=== PATIENT | male | born 1990 | race American Indian/Alaskan Native ===

== ENCOUNTER 2016-04-29 11:50 | Emergency (ER) | payer SELFPAY ==
[2016-04-29] MEDS ORDERED: XOPENEX IH ONE (12:29)
[2016-04-29] MEDS ORDERED: TYLENOL PO ONE (12:29)
--- NOTE | 2016-04-29 12:32 | Emergency Department Report ---
Chief Complaint: Dyspnea/Respdistress Stated Complaint: SOB/WHEEZING/FEVER Time Seen by Provider: 04/29/16 12:27 - HPI History of Present Illness: Patient reports wheezing, headache and fever that started yesterday - ROS Review of Systems: all other systems are unremarkable except for documentation in HPI - Exam Vital Signs: Vital Signs 04/29/16 12:07 Temperature 103 F H Pulse Rate 126 H Respiratory 22 Rate Blood Pressure 126/82 O2 Sat by Pulse 94 Oximetry Physical Exam: Gen: well developed and nourished, NAD Resp: expiratory wheezing, even and unlabored, no rales or rhonchi MSE screening note: Focused history and physical exam performed. Due to findings the following was ordered: analgesic, resp tx and radiology studies ordered ED Disposition for MSE Condition: Stable
--- NOTE | 2016-04-29 13:27 | XRay Report ---
Chest 2 views: History: Dyspnea. Findings: Normal cardiomediastinal silhouette. Trachea is midline. No consolidation, pneumothorax or pleural fusion. Impression No acute cardiopulmonary findings.
[2016-04-29] MEDS ORDERED: TESSALON PERLES PO ONE (22:45)
[2016-04-29] MEDS ORDERED: MUCINEX ER PO ONE (22:45)
[2016-04-29 23:29] VITALS: BP 121/85
--- NOTE | 2016-04-29 23:40 | Emergency Department Report ---
HPI - General Chief Complaint: Dyspnea/Respdistress Time Seen by Provider: 04/29/16 22:13 - HPI HPI: The patient is a 26-year-old male who presents for evaluation of cough and dyspnea. The patient has a history of asthma. The patient reports 1 day of a nonproductive cough, a low-grade fever, moderate in severity shortness of breath , exacerbated with coughing and exertion, and mild, achy in quality, bilateral chest pain, exacerbated with coughing, relieved at rest. hemoptysis, unilateral leg swelling, oral contraceptive use, recent immobilization, history of DVT or PE, recent cancer, history of familial coagulation disorder. ED Past Medical Hx - Past Medical History Previous Medical History?: Yes Hx Hypertension: Yes (not meds) Hx Asthma: Yes - Surgical History Past Surgical History?: No - Social History Smoking Status: Former Smoker Substance Use Type: Alcohol - Medications Home Medications: Home Medications Medication Instructions Recorded Confirmed Last Taken Type Acetaminophen with Codeine 1 each PO Q8H PRN #15 tablet 08/20/14 Unknown Rx [Acetaminophen-Codeine #4 TAB] Penicillin Vk [Veetids TAB] 500 mg PO Q8H #30 tablet 08/20/14 Unknown Rx Acetaminophen/Codeine [Tylenol #3] 1 tab PO Q6H PRN #30 tab 01/28/15 Unknown Rx Cyclobenzaprine [Flexeril 10 MG 10 mg PO TID PRN #30 tablet 01/28/15 Unknown Rx TAB] Albuterol Sulfate [Albuterol 0.63% 0.63 mg IH TID PRN #1 box 07/13/15 Unknown Rx NEBS] ALBUTEROL Inhaler [ProAir HFA 2 puff IH QID PRN #200 inhalation 09/05/15 Unknown Rx Inhaler] Azithromycin [Zithromax Z-MEL] 250 mg PO DAILY #6 tablet 09/05/15 Unknown Rx Loratadine [Claritin] 10 mg PO DAILY #30 tablet 09/05/15 Unknown Rx predniSONE [Deltasone] 40 mg PO DAILY #10 tab 09/05/15 Unknown Rx ALBUTEROL Inhaler [ProAir HFA 2 puff IH QID PRN #1 inhalation 04/29/16 Unknown Rx Inhaler] Ibuprofen [Motrin] 600 mg PO Q8H PRN #30 tablet 04/29/16 Unknown Rx Promethazine /Codeine 5 ml PO Q6H PRN #90 ml 04/29/16 Unknown Rx [Phenergan/Codeine 6.25-10 mg/5Ml] guaiFENesin [Mucinex] 600 mg PO Q6HR #20 tab.er.12h 04/29/16 Unknown Rx ED Review of Systems ROS: Stated complaint: SOB/WHEEZING/FEVER Other details as noted in HPI Constitutional: denies: fever ENT: denies: throat or neck pain Respiratory: reports cough, shortness of breath Cardiovascular: denies: chest pain Endocrine: denies unexplained weight loss or gain Gastrointestinal: denies: abdominal pain, nausea Genitourinary: denies: dysuria Musculoskeletal: denies: leg swelling Skin: denies: rash Neurological: denies: headache Hematological/Lymphatic: denies: easy bleeding or easy bruising Psych: denies sadness or hopelessness Physical Exam - Physical Exam Vital Signs: Vital Signs 04/29/16 04/29/16 04/29/16 12:07 13:09 13:10 Temperature 103 F H Pulse Rate 126 H Pulse Rate [ 120 H 121 H Anterior Bilateral Throughout] Respiratory 22 Rate Respiratory 18 19 Rate [Anterior Bilateral Throughout] Blood Pressure 126/82 O2 Sat by Pulse 94 Oximetry 04/29/16 21:22 Temperature 98.4 F Pulse Rate 114 H Pulse Rate [ Anterior Bilateral Throughout] Respiratory 18 Rate Respiratory Rate [Anterior Bilateral Throughout] Blood Pressure 140/84 O2 Sat by Pulse 95 Oximetry Physical Exam: General: well-nourished, well-developed, no acute distress Head: Normocephalic, atraumatic Eyes: normal sclera ENT: bilateral nasal congestion present, Mucous membranes are pink and moist Neck: trachea midline, neck supple, No neck stiffness, no cervical adenopathy Respiratory: Mildly diminished apical breath sounds and wheezing present, no costal retractions, bronchitic cough present Cardio: S1 and S2 present, no murmurs, rubs, gallops, capillary refill is brisk Abdomen: Normoactive bowel sounds, soft abdomen, no rigidity, no guarding or rebound tenderness Musc: No pitting edema Skin: No rash Neuro: no facial drooping, normal speech Psych: Normal affect ED Course Vital Signs 04/29/16 04/29/16 04/29/16 12:07 13:09 13:10 Temperature 103 F H Pulse Rate 126 H Pulse Rate [ 120 H 121 H Anterior Bilateral Throughout] Respiratory 22 Rate Respiratory 18 19 Rate [Anterior Bilateral Throughout] Blood Pressure 126/82 O2 Sat by Pulse 94 Oximetry 04/29/16 21:22 Temperature 98.4 F Pulse Rate 114 H Pulse Rate [ Anterior Bilateral Throughout] Respiratory 18 Rate Respiratory Rate [Anterior Bilateral Throughout] Blood Pressure 140/84 O2 Sat by Pulse 95 Oximetry ED Medical Decision Making - Medical Decision Making The patient was seen and examined by myself. The patient is placed on a newspaper correspondent and continuous pulse ox. On initial evaluation, the patient was found to be in no distress. Evaluation orders were placed. EKG was negative for findings suggestive of acute cardiac infarct. The patient is given a tablet of Tylenol for his pain and fever, Tessalon Perles for their cough, Mucinex for nasal congestion, and a breathing treatment for his wheezing. Chest x-ray is negative for pulmonary vessel congestion, pleural effusion, focal consolidation, or other acute cardio pulmonary disease process. The patient was reevaluated and reported that their symptoms were markedly improved. On reexamination the patient is found to have normal respiratory rate and O2 sat on pulse oximetry, with no costal retractions or diminishment of breath sounds on auscultation. The patient is stable for discharge with outpatient follow-up. The patient is given follow-up and return instructions. The patient expressed understanding and agreed with the plan. The patient is discharged in stable condition. Critical care attestation.: If time is entered above; I have spent that time in minutes in the direct care of this critically ill patient, excluding procedure time. ED Disposition Clinical Impression: Acute bronchitis with bronchospasm, Acute viral syndrome Fever Qualifiers: Fever type: unspecified Qualified Code(s): R50.9 - Fever, unspecified Disposition: DISCHARGED TO HOME OR SELFCARE Is pt being admited?: No Does the pt Need Aspirin: No Condition: Stable Instructions: Acute Bronchitis (ED), Viral Syndrome (ED), Upper Respiratory Infection (ED) Referrals: PRIMARY CARE, [Primary Care Provider] - 3-5 Days Time of Disposition: 22:54
== END 2016-04-30 00:34 | disposition home or self-care (01) ==
LOC: ED 11:50
DX: J20.9 Acute bronchitis, unspecified (principal); B34.9 Viral infection, unspecified; I10 Essential (primary) hypertension; J45.909 Unspecified asthma, uncomplicated; Z87.891 Personal history of nicotine dependence
CPT/HCPCS: 71020; 94640

== ENCOUNTER 2016-07-06 18:29 | Emergency (ER) | payer SELFPAY ==
[2016-07-06] MEDS ORDERED: PROVENTIL IH ONE (19:24)
[2016-07-06 20:08] VITALS: BP 151/85
--- NOTE | 2016-07-07 19:46 | ED Elopement Review ---
ED Pt Elopement review - Call Back decision Pt Call Back Decision: No action required
== END 2016-07-06 22:30 | disposition left against medical advice (07) ==
LOC: ED 18:29
DX: J45.909 Unspecified asthma, uncomplicated (principal); R06.2 Wheezing; Z53.21 Procedure and treatment not carried out due to patient leaving prior to being seen by health care provider
CPT/HCPCS: 94640

== ENCOUNTER 2016-07-26 14:04 | Emergency (ER) | payer SELFPAY | END 2016-07-26 14:05 | disposition left against medical advice (07) | LOC: ED 14:04 | DX: R06.02 Shortness of breath (principal); Z53.21 Procedure and treatment not carried out due to patient leaving prior to being seen by health care provider ==

== ENCOUNTER 2017-06-27 18:15 | Emergency (ER) | payer SELFPAY ==
[2017-06-27] MEDS ORDERED: PROVENTIL IH ONE (18:55)
[2017-06-27] MEDS ORDERED: ATROVENT IH ONE (18:55)
[2017-06-27] MEDS ORDERED: MAGNESIUM SULFATE 2GM/50ML 2 GM/50 ML BAG IV ONE (18:55)
[2017-06-27] MEDS ORDERED: NACL 0.9% 1000 ML 1,000 ML IV ONE (19:00)
--- NOTE | 2017-06-27 19:35 | XRay Report ---
FINAL REPORT EXAM: XR CHEST 1V AP HISTORY: resp distress TECHNIQUE: upright single view chest PRIORS: None. FINDINGS: Cardiac and mediastinal contours are unremarkable. There is a focal increased density in the right suprahilar region. Nonspecific could be inflammatory or infectious. Suggest continued followup for further evaluation. No pleural fluid collection seen. Pulmonary vasculature is unremarkable. IMPRESSION: Focal increased density in the right suprahilar region. Could be infectious or inflammatory in nature. Suggest continued followup for further evaluation as no prior studies are available at this time
[2017-06-27 19:46] LABS: Basophils # (Auto) 0.1 K/mm3 (0.0-0.1); Basophils % (Auto) 0.9 % (0.0-1.8); Eosinophils # (Auto) 0.3 K/mm3 (0.0-0.4); Eosinophils % (Auto) 3.9 % (0.0-4.3); Hematocrit 38.1 % (35.5-45.6); Hemoglobin 11.8 gm/dl (11.8-15.2); Lymphocytes # (Auto) 1.4 K/mm3 (1.2-5.4); Lymphocytes % (Auto) 15.8 % (13.4-35.0); Mean Corpuscular HGB Conc 31 % (32-34); Monocytes # (Auto) 1.2 K/mm3 (0.0-0.8); Monocytes % (Auto) 13.4 % (0.0-7.3); Platelet Count 257 K/mm3 (140-440); Red Blood Count 6.21 M/mm3 (3.65-5.03); Red Cell Distribution Width 17.1 % (13.2-15.2)
[2017-06-27 19:47] LABS: Mean Corpuscular Hemoglobin 19 pg (28-32); Mean Corpuscular Volume 61 fl (84-94)
[2017-06-27 19:57] LABS: BUN/Creatinine Ratio 9; Blood Urea Nitrogen 7 mg/dL (9-20); Calcium 8.5 mg/dL (8.4-10.2); Hemolysis Index 3
--- NOTE | 2017-06-27 21:52 | Emergency Department Report ---
ED Asthma HPI - General Chief Complaint: Adult Asthma Stated Complaint: ASTHMA Time Seen by Provider: 06/27/17 18:59 Source: patient Mode of arrival: Ambulatory Limitations: No Limitations - History of Present Illness MD Complaint: wheezing -: Gradual, This morning Asthma History: childhood onset Severity: severe Context: ran out of meds Associated Symptoms: dry cough. denies: fever, chest pain, hemoptysis, leg edema - Related Data Previous Rx's Medication Instructions Recorded Last Taken Type Acetaminophen with Codeine 1 each PO Q8H PRN #15 tablet 08/20/14 Unknown Rx [Acetaminophen-Codeine #4 TAB] Penicillin Vk [Veetids TAB] 500 mg PO Q8H #30 tablet 08/20/14 Unknown Rx Acetaminophen/Codeine [Tylenol #3] 1 tab PO Q6H PRN #30 tab 01/28/15 Unknown Rx Cyclobenzaprine [Flexeril 10 MG 10 mg PO TID PRN #30 tablet 01/28/15 Unknown Rx TAB] Albuterol Sulfate [Albuterol 0.63% 0.63 mg IH TID PRN #1 box 07/13/15 Unknown Rx NEBS] Azithromycin [Zithromax Z-MEL] 250 mg PO DAILY #6 tablet 09/05/15 Unknown Rx Loratadine [Claritin] 10 mg PO DAILY #30 tablet 09/05/15 Unknown Rx ALBUTEROL Inhaler [ProAir HFA 2 puff IH QID PRN #1 inhalation 04/29/16 Unknown Rx Inhaler] Ibuprofen [Motrin] 600 mg PO Q8H PRN #30 tablet 04/29/16 Unknown Rx Promethazine /Codeine 5 ml PO Q6H PRN #90 ml 04/29/16 Unknown Rx [Phenergan/Codeine 6.25-10 mg/5Ml] guaiFENesin [Mucinex] 600 mg PO Q6HR #20 tab.er.12h 04/29/16 Unknown Rx ALBUTEROL Inhaler [ProAir HFA 2 puff IH QID PRN #200 inhalation 06/27/17 Unknown Rx Inhaler] predniSONE [Deltasone] 40 mg PO DAILY #7 tab 06/27/17 Unknown Rx Allergies Allergy/AdvReac Type Severity Reaction Status Date / Time No Known Allergies Allergy Verified 01/28/15 19:00 ED Review of Systems ROS: Stated complaint: ASTHMA Other details as noted in HPI Comment: All other systems reviewed and negative ED Past Medical Hx - Past Medical History Previous Medical History?: Yes Hx Hypertension: Yes (not meds) Hx Asthma: Yes - Surgical History Past Surgical History?: Yes Additional Surgical History: Umbilical hernia - Social History Smoking Status: Former Smoker Substance Use Type: Alcohol, Prescribed - Medications Home Medications: Home Medications Medication Instructions Recorded Confirmed Last Taken Type Acetaminophen with Codeine 1 each PO Q8H PRN #15 tablet 08/20/14 Unknown Rx [Acetaminophen-Codeine #4 TAB] Penicillin Vk [Veetids TAB] 500 mg PO Q8H #30 tablet 08/20/14 Unknown Rx Acetaminophen/Codeine [Tylenol #3] 1 tab PO Q6H PRN #30 tab 01/28/15 Unknown Rx Cyclobenzaprine [Flexeril 10 MG 10 mg PO TID PRN #30 tablet 01/28/15 Unknown Rx TAB] Albuterol Sulfate [Albuterol 0.63% 0.63 mg IH TID PRN #1 box 07/13/15 Unknown Rx NEBS] Azithromycin [Zithromax Z-MEL] 250 mg PO DAILY #6 tablet 09/05/15 Unknown Rx Loratadine [Claritin] 10 mg PO DAILY #30 tablet 09/05/15 Unknown Rx ALBUTEROL Inhaler [ProAir HFA 2 puff IH QID PRN #1 inhalation 04/29/16 Unknown Rx Inhaler] Ibuprofen [Motrin] 600 mg PO Q8H PRN #30 tablet 04/29/16 Unknown Rx Promethazine /Codeine 5 ml PO Q6H PRN #90 ml 04/29/16 Unknown Rx [Phenergan/Codeine 6.25-10 mg/5Ml] guaiFENesin [Mucinex] 600 mg PO Q6HR #20 tab.er.12h 04/29/16 Unknown Rx ALBUTEROL Inhaler [ProAir HFA 2 puff IH QID PRN #200 inhalation 06/27/17 Unknown Rx Inhaler] predniSONE [Deltasone] 40 mg PO DAILY #7 tab 06/27/17 Unknown Rx ED Physical Exam - General Limitations: No Limitations General appearance: alert, anxious - Head Head exam: Present: atraumatic, normocephalic - Eye Eye exam: Present: normal appearance - ENT ENT exam: Present: mucous membranes moist - Neck Neck exam: Present: normal inspection - Respiratory Respiratory exam: Present: respiratory distress, wheezes. Absent: rales, rhonchi - Cardiovascular Cardiovascular Exam: Present: regular rate, normal rhythm. Absent: systolic murmur, diastolic murmur, rubs, gallop - GI/Abdominal GI/Abdominal exam: Present: soft, normal bowel sounds. Absent: distended, tenderness, guarding - Rectal Rectal exam: Present: deferred - Extremities Exam Extremities exam: Present: normal inspection - Back Exam Back exam: Present: normal inspection - Neurological Exam Neurological exam: Present: alert, oriented X3 - Psychiatric Psychiatric exam: Present: normal affect, normal mood - Skin Skin exam: Present: warm, dry, intact, normal color. Absent: rash ED Course Vital Signs 06/27/17 06/27/17 18:49 19:11 Temperature 98.6 F Pulse Rate 91 H Pulse Rate [ 90 Anterior Bilateral Throughout] Respiratory 22 22 Rate Respiratory 22 Rate [Anterior Bilateral Throughout] Blood Pressure 141/89 O2 Sat by Pulse 97 Oximetry ED Medical Decision Making - Lab Data Result diagrams: 06/27/17 19:38 06/27/17 19:38 - Radiology Data Radiology results: report reviewed - Medical Decision Making Patient received an hour-long breathing treatment Solu-Medrol fluids and this feeling much much better. Patient states he would like to go home. Patient be discharged home at this time. Critical care attestation.: If time is entered above; I have spent that time in minutes in the direct care of this critically ill patient, excluding procedure time. ED Disposition Clinical Impression: Asthma exacerbation Qualifiers: Asthma severity: moderate Asthma persistence: unspecified Qualified Code(s): J45.901 - Unspecified asthma with (acute) exacerbation Disposition: - TO HOME OR SELFCARE Is pt being admited?: No Does the pt Need Aspirin: No Condition: Fair Instructions: Asthma (ED) Prescriptions: ALBUTEROL Inhaler [ProAir HFA Inhaler] 2 puff IH QID PRN #200 inhalation PRN Reason: Shortness Of Breath predniSONE [Deltasone] 40 mg PO DAILY #7 tab Referrals: VIRGEN JOHNSTON MD [Primary Care Provider] - 3-5 Days
[2017-06-27 22:00] VITALS: BP 124/72
== END 2017-06-27 21:59 | disposition home or self-care (01) ==
LOC: ED 18:15
DX: J45.901 Unspecified asthma with (acute) exacerbation (principal); I10 Essential (primary) hypertension; Z87.891 Personal history of nicotine dependence
CPT/HCPCS: 36415; 71045; 80048; 85025; 94640; 96365; 96375; 99284; J2930; J3475; J7030

== ENCOUNTER 2017-07-11 20:36 | Emergency (ER) | payer SELFPAY ==
[2017-07-11 22:01] VITALS: BP 114/72
[2017-07-11] MEDS ORDERED: PROVENTIL IH ONE (22:06)
[2017-07-11] MEDS ORDERED: ATROVENT IH ONE (22:06)
== END 2017-07-12 00:26 ==
LOC: ED 20:36
DX: R06.00 Dyspnea, unspecified (principal); Z53.21 Procedure and treatment not carried out due to patient leaving prior to being seen by health care provider
CPT/HCPCS: 94640

== ENCOUNTER 2017-08-01 21:42 | Inpatient (IN) | payer SELFPAY ==
[2017-08-01] MEDS ORDERED: PROVENTIL IH ONE ×2 (21:59→22:02)
[2017-08-01] MEDS ORDERED: ATROVENT IH ONE ×2 (21:59→22:02)
[2017-08-01] MEDS ORDERED: DELTASONE PO ONE (22:02)
--- NOTE | 2017-08-01 22:06 | Emergency Department Report ---
ED Shortness of Breath HPI - General Chief Complaint: Dyspnea/Respdistress Stated Complaint: SREE Time Seen by Provider: 08/01/17 22:00 Source: patient Mode of arrival: Ambulatory Limitations: No Limitations - History of Present Illness Initial Comments: Mr. Dhaliwal is a 27 yo male with hx of persistent asthma. Presents with shortness of breath and wheezing. Gradual onset of symptoms yesterday. Ran out of albuterol. Last ED visit here last month. Recently seen outside hospital last week for asthma. +tobacco use +marijuana use no hx of intubation no recent hospitalizations for asthma. Has required several ED visits MD Complaint: shortness of breath, "asthma attack" -: Gradual Severity: moderate Known History Of: asthma Context: smoke/fume exposure - Related Data Previous Rx's Medication Instructions Recorded Last Taken Type Acetaminophen with Codeine 1 each PO Q8H PRN #15 tablet 08/20/14 Unknown Rx [Acetaminophen-Codeine #4 TAB] Penicillin Vk [Veetids TAB] 500 mg PO Q8H #30 tablet 08/20/14 Unknown Rx Acetaminophen/Codeine [Tylenol #3] 1 tab PO Q6H PRN #30 tab 01/28/15 Unknown Rx Cyclobenzaprine [Flexeril 10 MG 10 mg PO TID PRN #30 tablet 01/28/15 Unknown Rx TAB] Albuterol Sulfate [Albuterol 0.63% 0.63 mg IH TID PRN #1 box 07/13/15 Unknown Rx NEBS] Azithromycin [Zithromax Z-MEL] 250 mg PO DAILY #6 tablet 09/05/15 Unknown Rx Loratadine [Claritin] 10 mg PO DAILY #30 tablet 09/05/15 Unknown Rx ALBUTEROL Inhaler [ProAir HFA 2 puff IH QID PRN #1 inhalation 04/29/16 Unknown Rx Inhaler] Ibuprofen [Motrin] 600 mg PO Q8H PRN #30 tablet 04/29/16 Unknown Rx Promethazine /Codeine 5 ml PO Q6H PRN #90 ml 04/29/16 Unknown Rx [Phenergan/Codeine 6.25-10 mg/5Ml] guaiFENesin [Mucinex] 600 mg PO Q6HR #20 tab.er.12h 04/29/16 Unknown Rx ALBUTEROL Inhaler [ProAir HFA 2 puff IH QID PRN #200 inhalation 03/21/18 Unknown Rx Inhaler] predniSONE [Deltasone] 40 mg PO DAILY #7 tab 06/27/17 Unknown Rx Allergies Allergy/AdvReac Type Severity Reaction Status Date / Time No Known Allergies Allergy Verified 01/28/15 19:00 ED Review of Systems ROS: Stated complaint: SREE Other details as noted in HPI Comment: All other systems reviewed and negative Constitutional: denies: fever, malaise Respiratory: denies: cough Cardiovascular: denies: chest pain ED Past Medical Hx - Past Medical History Previous Medical History?: Yes Hx Hypertension: Yes (not meds) Hx Asthma: Yes - Surgical History Past Surgical History?: Yes Additional Surgical History: Umbilical hernia - Social History Smoking Status: Current Some Day Smoker Substance Use Type: Alcohol - Medications Home Medications: Home Medications Medication Instructions Recorded Confirmed Last Taken Type Acetaminophen with Codeine 1 each PO Q8H PRN #15 tablet 08/20/14 Unknown Rx [Acetaminophen-Codeine #4 TAB] Penicillin Vk [Veetids TAB] 500 mg PO Q8H #30 tablet 08/20/14 Unknown Rx Acetaminophen/Codeine [Tylenol #3] 1 tab PO Q6H PRN #30 tab 01/28/15 Unknown Rx Cyclobenzaprine [Flexeril 10 MG 10 mg PO TID PRN #30 tablet 01/28/15 Unknown Rx TAB] Albuterol Sulfate [Albuterol 0.63% 0.63 mg IH TID PRN #1 box 07/13/15 Unknown Rx NEBS] Azithromycin [Zithromax Z-MEL] 250 mg PO DAILY #6 tablet 09/05/15 Unknown Rx Loratadine [Claritin] 10 mg PO DAILY #30 tablet 09/05/15 Unknown Rx ALBUTEROL Inhaler [ProAir HFA 2 puff IH QID PRN #1 inhalation 04/29/16 Unknown Rx Inhaler] Ibuprofen [Motrin] 600 mg PO Q8H PRN #30 tablet 04/29/16 Unknown Rx Promethazine /Codeine 5 ml PO Q6H PRN #90 ml 04/29/16 Unknown Rx [Phenergan/Codeine 6.25-10 mg/5Ml] guaiFENesin [Mucinex] 600 mg PO Q6HR #20 tab.er.12h 04/29/16 Unknown Rx ALBUTEROL Inhaler [ProAir HFA 2 puff IH QID PRN #200 inhalation 06/27/17 Unknown Rx Inhaler] predniSONE [Deltasone] 40 mg PO DAILY #7 tab 06/27/17 Unknown Rx ED Physical Exam - General Limitations: No Limitations General appearance: alert, other (speaking full word sentences with mild effort) - Head Head exam: Present: atraumatic, normocephalic - Eye Eye exam: Present: normal appearance - ENT ENT exam: Present: mucous membranes moist - Neck Neck exam: Present: normal inspection - Respiratory Respiratory exam: Present: normal lung sounds bilaterally, wheezes, decreased breath sounds, prolonged expiratory. Absent: respiratory distress, rales, rhonchi, chest wall tenderness, accessory muscle use - Cardiovascular Cardiovascular Exam: Present: regular rate, normal rhythm. Absent: systolic murmur, diastolic murmur, rubs, gallop - GI/Abdominal GI/Abdominal exam: Present: soft, normal bowel sounds. Absent: distended, tenderness, guarding, rebound - Rectal Rectal exam: Present: deferred - Extremities Exam Extremities exam: Present: normal inspection - Back Exam Back exam: Present: normal inspection - Neurological Exam Neurological exam: Present: alert, oriented X3 - Psychiatric Psychiatric exam: Present: normal affect, normal mood - Skin Skin exam: Present: warm, dry, intact, normal color. Absent: rash ED Course Vital Signs 08/01/17 08/01/17 08/01/17 21:50 21:57 22:00 Temperature 97.6 F Pulse Rate 94 H 88 Pulse Rate [ Anterior Bilateral Throughout] Respiratory 25 H 25 H 24 Rate Respiratory Rate [Anterior Bilateral Throughout] Blood Pressure 134/84 O2 Sat by Pulse 92 94 94 Oximetry 08/01/17 08/01/17 08/01/17 22:06 22:16 22:30 Temperature Pulse Rate 84 87 Pulse Rate [ 93 H Anterior Bilateral Throughout] Respiratory 36 H 38 H Rate Respiratory 24 Rate [Anterior Bilateral Throughout] Blood Pressure O2 Sat by Pulse 97 96 Oximetry 08/01/17 08/01/17 08/01/17 22:46 23:00 23:16 Temperature Pulse Rate 92 H 85 109 H Pulse Rate [ Anterior Bilateral Throughout] Respiratory 16 15 39 H Rate Respiratory Rate [Anterior Bilateral Throughout] Blood Pressure O2 Sat by Pulse 97 86 92 Oximetry 08/01/17 08/01/17 08/01/17 23:30 23:34 23:46 Temperature Pulse Rate 93 H 94 H Pulse Rate [ 102 H Anterior Bilateral Throughout] Respiratory 36 H 31 H Rate Respiratory 22 Rate [Anterior Bilateral Throughout] Blood Pressure O2 Sat by Pulse 99 97 Oximetry 08/02/17 08/02/17 08/02/17 00:00 00:16 00:30 Temperature Pulse Rate 101 H 91 H 94 H Pulse Rate [ Anterior Bilateral Throughout] Respiratory 25 H 22 23 Rate Respiratory Rate [Anterior Bilateral Throughout] Blood Pressure O2 Sat by Pulse 95 90 89 Oximetry 08/02/17 08/02/17 00:46 01:17 Temperature Pulse Rate 96 H Pulse Rate [ 96 H Anterior Bilateral Throughout] Respiratory 20 Rate Respiratory 18 Rate [Anterior Bilateral Throughout] Blood Pressure O2 Sat by Pulse 91 Oximetry - Reevaluation(s) Reevaluation #1: 08/02/17 01:01 I evaluated Mr. Dhaliwal after 10 mg albuterol, 0.5 mg Atrovent and prednisone by mouth. He still continued to have wheezing. Slight improvement subjectively. ED Medical Decision Making - Medical Decision Making Mr. Dhaliwal presents with acute asthma exacerbation. After 20 mg of Albuterol, Atrovent and prednisone, continues to have hypoxia and wheezing with mild work of breathing. Will need admission. I spoke with Dr. Hebert hospitalist regarding admission. Critical care attestation.: If time is entered above; I have spent that time in minutes in the direct care of this critically ill patient, excluding procedure time. ED Disposition Clinical Impression: Asthma exacerbation Disposition: OP ADMIT IP TO THIS HOSP Is pt being admited?: Yes Does the pt Need Aspirin: No Condition: Stable Time of Disposition: 02:03
[2017-08-02] MEDS ORDERED: PERCOCET 5/325 ONE (00:20)
[2017-08-02] MEDS ORDERED: ASPIRIN ONE (00:21)
[2017-08-02] MEDS ORDERED: MOTRIN ONE (00:21)
[2017-08-02] MEDS ORDERED: ZOFRAN ODT ONE (00:22)
[2017-08-02] MEDS ORDERED: PROVENTIL IH ONE (01:01)
[2017-08-02] MEDS ORDERED: LEVAQUIN PO ONE (02:01)
[2017-08-02 02:33] LABS: Basophils # (Auto) 0.1 K/mm3 (0.0-0.1); Eosinophils # (Auto) 0.3 K/mm3 (0.0-0.4); Eosinophils % (Auto) 3.9 % (0.0-4.3); Hematocrit 39.9 % (35.5-45.6); Hemoglobin 12.7 gm/dl (11.8-15.2); Lymphocytes # (Auto) 0.5 K/mm3 (1.2-5.4); Lymphocytes % (Auto) 6.9 % (13.4-35.0); Mean Corpuscular HGB Conc 32 % (32-34); Monocytes # (Auto) 0.1 K/mm3 (0.0-0.8); Monocytes % (Auto) 1.9 % (0.0-7.3); Platelet Count 316 K/mm3 (140-440); Red Blood Count 6.55 M/mm3 (3.65-5.03); Red Cell Distribution Width 16.2 % (13.2-15.2)
--- NOTE | 2017-08-02 02:35 | XRay Report ---
FINAL REPORT EXAM: XR CHEST 1V AP HISTORY: asthma TECHNIQUE: A portable semi-upright view the chest was submitted. Comparison is made to the study 06/27/2017. FINDINGS: Heart size and mediastinum appear normal. The lungs are clear. Pleural fluid is not seen. The bones and soft tissues do not show any acute changes. IMPRESSION: No active chest disease.
[2017-08-02 02:36] LABS: Mean Corpuscular Hemoglobin 19 pg (28-32); Mean Corpuscular Volume 61 fl (84-94)
[2017-08-02 02:43] LABS: BUN/Creatinine Ratio 10; Blood Urea Nitrogen 9 mg/dL (9-20); Calcium 8.6 mg/dL (8.4-10.2); Hemolysis Index 0
[2017-08-02] MEDS ORDERED: ZOFRAN IV PRN (03:14)
[2017-08-02] MEDS ORDERED: TYLENOL PO PRN (03:14)
[2017-08-02] MEDS ORDERED: NORCO 5/325 PO PRN (03:14)
[2017-08-02] MEDS ORDERED: SODIUM CHLORIDE FLUSH SYRINGE 10 ML IV PRN (03:14)
--- NOTE | 2017-08-02 04:26 | History and Physical Report ---
History of Present Illness Date of examination: 08/02/17 Date of admission: 08/02/17 03:14 Chief complaint: Shortness of breath History of present illness: Patient is a 27 year old -[place] male with medical history significant for asthma, who presented to the ED on account of a day history of worsening shortness of breath. He has associated pleuritic chest pain, dry cough and subjective fever. He denies diaphoresis, palpitation, leg swelling, orthopnea or PND. No headaches, nausea or vomiting, dizziness, syncope or loss of consciousness. Patient stated that he quit smoking cigarettes about a month ago , however he admitted to history of secondhand smoking. Past History Past Medical History: other (asthma with frequent attacks) Past Surgical History: No surgical history Social history: smoking (he stated that he quit about a month ago. He admits to occasional alcohol use but denies illicit drug use) Family history: other (reviewed and noncontributory) Medications and Allergies Allergies Allergy/AdvReac Type Severity Reaction Status Date / Time No Known Allergies Allergy Verified 01/28/15 19:00 Home Medications Medication Instructions Recorded Confirmed Last Taken Type Acetaminophen with Codeine 1 each PO Q8H PRN #15 tablet 08/20/14 Unknown Rx [Acetaminophen-Codeine #4 TAB] Penicillin Vk [Veetids TAB] 500 mg PO Q8H #30 tablet 08/20/14 Unknown Rx Acetaminophen/Codeine [Tylenol #3] 1 tab PO Q6H PRN #30 tab 01/28/15 Unknown Rx Cyclobenzaprine [Flexeril 10 MG 10 mg PO TID PRN #30 tablet 01/28/15 Unknown Rx TAB] Albuterol Sulfate [Albuterol 0.63% 0.63 mg IH TID PRN #1 box 07/13/15 Unknown Rx NEBS] Azithromycin [Zithromax Z-MEL] 250 mg PO DAILY #6 tablet 09/05/15 Unknown Rx Loratadine [Claritin] 10 mg PO DAILY #30 tablet 09/05/15 Unknown Rx ALBUTEROL Inhaler [ProAir HFA 2 puff IH QID PRN #1 inhalation 04/29/16 Unknown Rx Inhaler] Ibuprofen [Motrin] 600 mg PO Q8H PRN #30 tablet 04/29/16 Unknown Rx Promethazine /Codeine 5 ml PO Q6H PRN #90 ml 04/29/16 Unknown Rx [Phenergan/Codeine 6.25-10 mg/5Ml] guaiFENesin [Mucinex] 600 mg PO Q6HR #20 tab.er.12h 04/29/16 Unknown Rx ALBUTEROL Inhaler [ProAir HFA 2 puff IH QID PRN #200 inhalation 06/27/17 Unknown Rx Inhaler] predniSONE [Deltasone] 40 mg PO DAILY #7 tab 06/27/17 Unknown Rx Active Meds: Active Medications Acetaminophen (Tylenol) 650 mg PO Q4H PRN PRN Reason: Pain MILD(1-3)/Fever >100.5/HARO Acetaminophen/Hydrocodone Bitart ([place] 5/325) 2 each PO Q6H PRN PRN Reason: Pain, Moderate (4-6) Albuterol/Ipratropium (Duoneb *Not For Prn Use*) 1 ampul IH Q6HRT DAVID Azithromycin (Zithromax) 250 mg PO QDAY DAVID Methylprednisolone Sodium Succinate (Solu-Medrol) 60 mg IV Q8H DAVID Ondansetron HCl (Zofran) 4 mg IV Q8H PRN PRN Reason: Nausea And Vomiting Sodium Chloride (Sodium Chloride Flush Syringe 10 Ml) 10 ml IV BID DAVID Sodium Chloride (Sodium Chloride Flush Syringe 10 Ml) 10 ml IV PRN PRN PRN Reason: LINE FLUSH Review of Systems All systems: negative (except as documented in the HPI, all other systems were reviewed and negative) Exam - Constitutional Vitals: Temp Pulse Resp BP Pulse Ox 97.6 F 99 H 20 134/84 91 08/01/17 21:50 08/02/17 02:28 08/02/17 02:28 08/01/17 21:50 08/02/17 00:46 General appearance: Present: no acute distress, well-nourished - EENT Eyes: Present: PERRL, EOM intact ENT: hearing intact, clear oral mucosa - Neck Neck: Present: supple, normal ROM - Respiratory Respiratory effort: normal Respiratory: bilateral: diminished, wheezing - Cardiovascular Rhythm: regular Heart Sounds: Present: S1 & S2. Absent: rub, click - Extremities Extremities: pulses symmetrical, No edema Peripheral Pulses: within normal limits - Abdominal General gastrointestinal: Present: soft, non-tender, non-distended, normal bowel sounds - Integumentary Integumentary: Present: clear, warm, dry - Musculoskeletal Musculoskeletal: gait normal, strength equal bilaterally - Psychiatric Psychiatric: appropriate mood/affect, intact judgment & insight - Neurologic Neurologic: CNII-XII intact, moves all extremities Results - Labs CBC & Chem 7: 08/02/17 02:12 08/02/17 02:12 Labs: Laboratory Last Values WBC 7.5 K/mm3 (4.5-11.0) 08/02/17 02:12 RBC 6.55 M/mm3 (3.65-5.03) H 08/02/17 02:12 Hgb 12.7 gm/dl (11.8-15.2) 08/02/17 02:12 Hct 39.9 % (35.5-45.6) 08/02/17 02:12 MCV 61 fl (84-94) L 08/02/17 02:12 MCH 19 pg (28-32) L 08/02/17 02:12 MCHC 32 % (32-34) 08/02/17 02:12 RDW 16.2 % (13.2-15.2) H 08/02/17 02:12 Plt Count 316 K/mm3 (140-440) 08/02/17 02:12 Lymph % (Auto) 6.9 % (13.4-35.0) L 08/02/17 02:12 [place] % (Auto) 1.9 % (0.0-7.3) 08/02/17 02:12 Eos % (Auto) 3.9 % (0.0-4.3) 08/02/17 02:12 Baso % (Auto) 1.0 % (0.0-1.8) 08/02/17 02:12 Lymph # 0.5 K/mm3 (1.2-5.4) L 08/02/17 02:12 [place] # 0.1 K/mm3 (0.0-0.8) 08/02/17 02:12 Eos # 0.3 K/mm3 (0.0-0.4) 08/02/17 02:12 Baso # 0.1 K/mm3 (0.0-0.1) 08/02/17 02:12 Seg Neutrophils % 86.3 % (40.0-70.0) H 08/02/17 02:12 Seg Neutrophils # 6.5 K/mm3 (1.8-7.7) 08/02/17 02:12 Sodium 136 mmol/L (137-145) L 08/02/17 02:12 Potassium 4.2 mmol/L (3.6-5.0) 08/02/17 02:12 Chloride 98.6 mmol/L (98-107) 08/02/17 02:12 Carbon Dioxide 26 mmol/L (22-30) 08/02/17 02:12 Anion Gap 16 mmol/L 08/02/17 02:12 BUN 9 mg/dL (9-20) 08/02/17 02:12 Creatinine 0.9 mg/dL (0.8-1.5) 08/02/17 02:12 Estimated GFR > 60 ml/min 08/02/17 02:12 BUN/Creatinine Ratio 10 % 08/02/17 02:12 Glucose 134 mg/dL (75-100) H 08/02/17 02:12 Calcium 8.6 mg/dL (8.4-10.2) 08/02/17 02:12 Assessment and Plan Assessment and plan: Moderate persistent asthma with acute exacerbation -Will place patient on IV steroid, nebulizer breathing treatments and empiric oral antibiotic SIRS, secondary to non-infectious cause -Will monitor clinically Prophylaxis -DVT prophylaxis with SCD Disposition: Discharge patient when medically stable 35 minutes spent coordinating care
[2017-08-02] MEDS: DUONEB *Not for PRN Use IH SCH ×3 (09:54→19:58)
[2017-08-02] MEDS: ZITHROMAX PO SCH (10:13)
[2017-08-02] MEDS: SODIUM CHLORIDE FLUSH SYRINGE 10 ML IV SCH ×2 (14:56→22:10)
[2017-08-02] MEDS ORDERED: ROBITUSSIN AC PO PRN (16:17)
--- NOTE | 2017-08-02 16:20 | Progress Note ---
Assessment and Plan Assessment and plan: Patient is a 27 yo man with h/o asthma who pw sob and cough SIRS Asthma exacerbation Hyponatremia wean off o2 continue iv steroids continue nebs atc antitussive History Interval history: Patient seen and examined. Still sob but much better with stacked neb treatments and O2 therapy. Hospitalist Physical - Constitutional Vitals: Temp Pulse Resp BP Pulse Ox 98.4 F 119 H 20 132/72 94 08/02/17 07:39 08/02/17 14:16 08/02/17 14:16 08/02/17 07:39 08/02/17 10:05 General appearance: Present: no acute distress, well-nourished - EENT Eyes: Present: PERRL, EOM intact ENT: hearing intact, clear oral mucosa, dentition normal - Neck Neck: Present: supple, normal ROM - Respiratory Respiratory effort: normal Respiratory: bilateral: wheezing - Cardiovascular Rhythm: regular Heart Sounds: Present: S1 & S2 - Extremities Extremities: no ischemia, pulses intact Extremity abnormal: edema, cyanosis Peripheral Pulses: within normal limits - Abdominal General gastrointestinal: soft, non-distended, normal bowel sounds - Integumentary Integumentary: Present: clear, warm, dry - Psychiatric Psychiatric: appropriate mood/affect - Neurologic Neurologic: CNII-XII intact Results - Labs CBC & Chem 7: 08/02/17 02:12 08/02/17 02:12 Labs: Laboratory Last Values WBC 7.5 K/mm3 (4.5-11.0) 08/02/17 02:12 RBC 6.55 M/mm3 (3.65-5.03) H 08/02/17 02:12 Hgb 12.7 gm/dl (11.8-15.2) 08/02/17 02:12 Hct 39.9 % (35.5-45.6) 08/02/17 02:12 MCV 61 fl (84-94) L 08/02/17 02:12 MCH 19 pg (28-32) L 08/02/17 02:12 MCHC 32 % (32-34) 08/02/17 02:12 RDW 16.2 % (13.2-15.2) H 08/02/17 02:12 Plt Count 316 K/mm3 (140-440) 08/02/17 02:12 Lymph % (Auto) 6.9 % (13.4-35.0) L 08/02/17 02:12 [place] % (Auto) 1.9 % (0.0-7.3) 08/02/17 02:12 Eos % (Auto) 3.9 % (0.0-4.3) 08/02/17 02:12 Baso % (Auto) 1.0 % (0.0-1.8) 08/02/17 02:12 Lymph # 0.5 K/mm3 (1.2-5.4) L 08/02/17 02:12 [place] # 0.1 K/mm3 (0.0-0.8) 08/02/17 02:12 Eos # 0.3 K/mm3 (0.0-0.4) 08/02/17 02:12 Baso # 0.1 K/mm3 (0.0-0.1) 08/02/17 02:12 Seg Neutrophils % 86.3 % (40.0-70.0) H 08/02/17 02:12 Seg Neutrophils # 6.5 K/mm3 (1.8-7.7) 08/02/17 02:12 Sodium 136 mmol/L (137-145) L 08/02/17 02:12 Potassium 4.2 mmol/L (3.6-5.0) 08/02/17 02:12 Chloride 98.6 mmol/L (98-107) 08/02/17 02:12 Carbon Dioxide 26 mmol/L (22-30) 08/02/17 02:12 Anion Gap 16 mmol/L 08/02/17 02:12 BUN 9 mg/dL (9-20) 08/02/17 02:12 Creatinine 0.9 mg/dL (0.8-1.5) 08/02/17 02:12 Estimated GFR > 60 ml/min 08/02/17 02:12 BUN/Creatinine Ratio 10 % 08/02/17 02:12 Glucose 134 mg/dL (75-100) H 08/02/17 02:12 Calcium 8.6 mg/dL (8.4-10.2) 08/02/17 02:12
[2017-08-02] MEDS: TESSALON PERLES PO SCH ×2 (19:06→22:58)
[2017-08-02] MEDS: MUCINEX ER PO SCH (21:59)
[2017-08-03] MEDS: DUONEB *Not for PRN Use IH SCH ×3 (02:15→15:28)
[2017-08-03] MEDS: TESSALON PERLES PO SCH ×2 (05:15→13:50)
[2017-08-03] MEDS: SODIUM CHLORIDE FLUSH SYRINGE 10 ML IV SCH (09:55)
[2017-08-03] MEDS: MUCINEX ER PO SCH (09:55)
[2017-08-03] MEDS: ZITHROMAX PO SCH (09:55)
--- NOTE | 2017-08-03 14:05 | Discharge Summary ---
Providers - Providers Date of Admission: 08/02/17 03:14 Date of discharge: 08/03/17 Attending physician: JOSE ALDRIDGE Primary care physician: EBENEZER BLACK MD Hospitalization Condition: Stable Hospital course: Patient is a 27 yo man with h/o asthma who pw sob and cough SIRS Asthma exacerbation Hyponatremia wean off o2 continue iv steroids continue nebs atc antitussive Disposition: DC-01 TO HOME OR SELFCARE Time spent for discharge: 35 minutes Core Measure Documentation - Palliative Care Palliative Care/ Comfort Measures: Not Applicable - Core Measures Any of the following diagnoses?: none - VTE Discharge Requirements Deep Vein Thrombosis/Pulmonary Embolism Present on Admission: No Has pt received <5 days of overlap therapy or INR<2.0: No Anticoagulant overlap therapy prescribed at discharge: No Contraindication No Overlap Therapy order at DC: Not Indicated Exam - Physical Exam Narrative exam: GEN: WDWN, NAD, Awake, Alert, Orientated x 3 HEENT: NCAT, EOMI, PERRL, OP Clear NECK: supple, no adenopathy, no thyromegaly, no JVD CVS/HEART: RRR, normal S1S2, pulses present bilaterally CHEST/LUNGS: CTA B, Symmetrical chest expansion, good air entry bilaterally GI/Abdomen: soft, NTND, good bowel sounds, no guarding or rebound /Bladder: no suprapubic tenderness, no CVA or paraspinal tenderness EXT/Skin: no c/c/e, no obvious rash MSK: FROM x 4 Neuro: CN 2-12 grossly intact, no new focal deficits Psych: calm - Constitutional Vitals: Temp Pulse Resp BP Pulse Ox 98.0 F 90 18 122/63 94 08/03/17 07:35 08/03/17 09:39 08/03/17 09:39 08/03/17 07:35 08/03/17 09:30 Plan Activity: other (no strenous activities) Diet: regular Special Instructions: smoking cessation Durable Medical Equipment Needed Upon Discharge: Nebulizer Follow up with: PRIMARY CARE, [Primary Care Provider] - 7 Days Prescriptions: Azithromycin [Zithromax TAB] 250 mg PO QDAY 2 Days tablet methylPREDNISolone [Medrol Dose Aftab] 1 dose PO DAILY #1 pack Other Discharge Orders: Nebulizer (Amb) Location: None Selected
[2017-08-03 16:36] VITALS: BP 139/84
== END 2017-08-03 17:15 | disposition home or self-care (01) | DRG 202 ==
LOC: ED 21:42 → 3A 08-02 03:14
PROVIDERS: ADMIT Internal Medicine; ATTEND Internal Medicine
DX: J45.901 Unspecified asthma with (acute) exacerbation (principal); R65.10 Systemic inflammatory response syndrome (SIRS) of non-infectious origin without acute organ dysfunction; E87.1 Hypo-osmolality and hyponatremia; I10 Essential (primary) hypertension; F17.200 Nicotine dependence, unspecified, uncomplicated; Z79.899 Other long term (current) drug therapy; Z72.89 Other problems related to lifestyle
CPT/HCPCS: 36415; 71045; 80048; 85025; 94640; 94644; 94760; 96374; 99285; J2920; J7512; Q0162

== ENCOUNTER 2017-09-25 21:06 | Emergency (ER) | payer BC ==
[2017-09-25 22:02] VITALS: BP 145/85
--- NOTE | 2017-09-26 01:25 | Ultrasound Report ---
FINAL REPORT EXAM: US TESTICULAR DOPPLER COMP HISTORY: GROIN PAIN TECHNIQUE: Routine sonographic evaluation was obtained of the scrotum with Doppler interrogation of the testicles. FINDINGS: Both testicles are normal size, contour, echotexture, and blood flow. The right testicle measures 4.1 cm x 2.3 cm x 3.6 cm. The left testicle measures 4.4 cm x 2.1 cm x 3.6 cm. The right epididymis appears normal in size and echotexture. The left epididymis is remarkable for 1.1 cm x 0.5 cm x 0.9 cm cyst in the epididymal head. There is a small left-sided hydrocele. There are benign-appearing lymph nodes in both inguinal canals the largest on the left side measuring 2.2 cm x 0.6 cm x 1.7 cm. IMPRESSION: No evidence of testicular neoplasia or torsion. Small left epididymal cyst measuring up to 1.1 cm in dimension. Small left hydrocele. Benign-appearing inguinal chain lymph nodes noted bilaterally.
== END 2017-09-26 01:50 | disposition other institution (70) ==
LOC: ED 21:06
DX: R10.2 Pelvic and perineal pain (principal); E11.9 Type 2 diabetes mellitus without complications; I10 Essential (primary) hypertension; J45.909 Unspecified asthma, uncomplicated; Z72.0 Tobacco use; Z53.21 Procedure and treatment not carried out due to patient leaving prior to being seen by health care provider
CPT/HCPCS: 93975

== ENCOUNTER 2017-10-16 20:44 | Emergency (ER) | payer BC ==
[2017-10-16 20:58] VITALS: BP 134/81
== END 2017-10-16 23:20 | disposition left against medical advice (07) ==
LOC: ED 20:44
DX: R06.02 Shortness of breath (principal); Z53.21 Procedure and treatment not carried out due to patient leaving prior to being seen by health care provider

== ENCOUNTER 2017-11-04 13:24 | Emergency (ER) | payer BC | END 2017-11-04 13:50 | disposition left against medical advice (07) | LOC: ED 13:24 | DX: Z76.0 Encounter for issue of repeat prescription (principal); Z53.21 Procedure and treatment not carried out due to patient leaving prior to being seen by health care provider ==